=== PATIENT | male | born 2000 | race Caucasian/White ===

== ENCOUNTER 2023-04-11 18:02 | Emergency (ER) | payer OTHER ==
[~2023-04-11] VITALS: Ht 162.6 cm; Wt 66.5 kg
[2023-04-11 18:34] LABS: BASO # 0.07 K/mm3 (0.02-0.10); EOS # 0.09 K/mm3 (0.04-0.40); HEMATOCRIT 47.7 % (42.0-52.0); HEMOGLOBIN 16.6 g/dL (13.5-18.0); LYMPH# 1.91 K/mm3 (1.50-4.00); MEAN CELL VOLUME 91 fl (78-100); MEAN CORPUSCULAR HEMOGLOBIN 32 pg (27-31); MEAN CORPUSCULAR HGB CONC 35 g/dL (33-37); MEAN PLATELET VOLUME 10.1 fl (7.4-10.4); MONO # 0.55 K/mm3 (0.20-0.80); NEU # 6.25 K/mm3 (1.40-6.50); PLATELET COUNT 289 K/mm3 (130-400); RED BLOOD COUNT 5.24 M/mm3 (4.20-5.60); RED CELL DISTRIBUTION WIDTH 10.7 % (11.5-14.5); WHITE BLOOD COUNT 8.9 K/mm3 (4.8-10.8)
[2023-04-11] MEDS ORDERED: ADVIL 200MG TA200 MG PO (18:40)
[2023-04-11 18:42] LABS: CALCIUM 10.3 mg/dL (8.3-10.5)
[2023-04-11 18:43] LABS: TOTAL PROTEIN 7.8 g/dL (6.4-8.3)
[2023-04-11 18:45] LABS: TOTAL BILIRUBIN 0.6 mg/dL (0.2-1.2)
[2023-04-11 20:16] VITALS: BP 111/66
== END 2023-04-11 20:10 | disposition home or self-care (01) ==
LOC: ED 18:02
PROVIDERS: Physician Assistant
DX: R07.89 Other chest pain (principal); R10.13 Epigastric pain